=== PATIENT | female | born 1955 | race African-American/Black ===

== ENCOUNTER 2025-03-20 11:39 | Inpatient (IN) | payer OTHER, MEDICAID ==
[~2025-03-20] VITALS: Ht 165.1 cm; Wt 49.0 kg
[2025-03-20 11:45] VITALS: O2SAT 100
[2025-03-20 12:38] LABS: BASOPHILS % 0.7 % (0.0-2.0); EOSINOPHILS % 1.9 % (0.0-5.0); HEMATOCRIT. 27.3 % (36.0-48.0); HEMOGLOBIN. 9.3 g/dL (12.0-16.0); LYMPHOCYTES % 28.7 % (20.0-50.0); MEAN PLATELET VOLUME 8.2 fl (7.4-10.4); MONOCYTES % 14.4 % (2.0-8.0); NEUTROPHILS % 54.3 % (40.0-76.0); PLATELET 125 x1000/uL (130-400); RED BLOOD CELL COUNT 2.95 mill/uL (4.2-5.4); RED CELL DISTRIBUTION WIDTH 17.7 % (11.6-14.6)
[2025-03-20 12:49] LABS: CREATININE 0.6 mg/dL (0.6-1.0); UREA NITROGEN BLOOD 9 mg/dL (9-23)
[2025-03-20 12:51] LABS: ASPARTATE AMINOTRANSFERASE 73 IU/L (<34); BILIRUBIN DIRECT 0.6 mg/dL (<=3.0); BILIRUBIN TOTAL 1.1 mg/dL (0.1-1.0); PROTEIN TOTAL 6.2 g/dL (6.0-8.3)
[2025-03-20 12:55] LABS: TROPONIN I HIGH SENSITIVITY < 4 ng/L (3.0-34)
[2025-03-20] MEDS: LACTULOSE 20G/30ML UDC PO ONE (14:01)
[2025-03-20 16:30] VITALS: BP_SYST 102; BP_DIAS 58; BP_DIAS 78; PULSE 88; RESP 18; TEMP 36.6; O2SAT 94
[2025-03-20] MEDS ORDERED: ONDANSETRON HCL 4MG/2ML INJ IV PRN (16:45)
[2025-03-20 18:42] VITALS: BP 102/58; PULSE 82; RESP 18; TEMP 36.5848
[2025-03-20 20:00] VITALS: BP 144/100; PULSE 81; RESP 18; TEMP 36.4; O2SAT 98
[2025-03-20] MEDS ORDERED: LACTULOSE 20G/30ML UDC PO SCH (22:00)
[2025-03-20] MEDS: LACTULOSE 20G/30ML UDC PO SCH (23:25)
[2025-03-21] VITALS: BP 135/71; PULSE 84; RESP 18; TEMP 36.4; O2SAT 97
[2025-03-21] MEDS: CEFTRIAXONE 1GM/50ML 50 ML IV SCH (03:07)
[2025-03-21 04:00] VITALS: BP 130/73; PULSE 88; RESP 18; TEMP 36.3; O2SAT 97
[2025-03-21 07:09] LABS: UREA NITROGEN BLOOD 6 mg/dL (9-23)
[2025-03-21 07:59] LABS: CREATININE 0.4 mg/dL (0.6-1.0)
[2025-03-21 08:00] VITALS: BP 132/84; PULSE 89; RESP 17; TEMP 36.5; O2SAT 100
[2025-03-21] MEDS: PANTOPRAZOLE SODIUM 40 MG/VIAL IV SCH (08:22)
[2025-03-21 08:52] LABS: HEMATOCRIT. 29.3 % (36.0-48.0); HEMOGLOBIN. 9.8 g/dL (12.0-16.0); MEAN PLATELET VOLUME 8.7 fl (7.4-10.4); PLATELET 130 x1000/uL (130-400); RED BLOOD CELL COUNT 3.13 mill/uL (4.2-5.4); RED CELL DISTRIBUTION WIDTH 18.2 % (11.6-14.6)
[2025-03-21] MEDS ORDERED: PANTOPRAZOLE SODIUM 40 MG/VIAL IV SCH (09:00)
[2025-03-21 12:00] VITALS: BP 105/58; PULSE 71; RESP 16; TEMP 36.4; O2SAT 100
[2025-03-21 16:00] VITALS: BP 125/80; PULSE 81; RESP 17; TEMP 36.5; O2SAT 100
[2025-03-21] MEDS: HYDROCODONE/ACETAMINOPHEN 10/325MG TABLET PO PRN (16:12)
[2025-03-21] MEDS ORDERED: NALOXONE HCL 0.4MG/ML VIAL IV PRN (16:15)
[2025-03-21] MEDS: NA PHOS,M-B/NA PHOS,DI-BA ENEMA 118ML PR NR (17:43)
[2025-03-21 18:37] LABS: *AMPHETAMINES SCREEN URINE NEGATIVE (NEGATIVE); *BENZODIAZEPINES SCREEN URINE NEGATIVE (NEGATIVE)
[2025-03-21 18:38] LABS: *BARBITURATES SCREEN URINE NEGATIVE (NEGATIVE); *COCAINE SCREEN URINE NEGATIVE (NEGATIVE); CANNABINOID URINE SCREEN PRESUMPTIVE POSITIVE (NEGATIVE); ECSTASY MDMA SCREEN URINE NEGATIVE (NEGATIVE); METHADONE URINE SCREEN NEGATIVE (NEGATIVE); OPIATES URINE SCREEN PRESUMPTIVE POSITIVE (NEGATIVE); PHENCYCLIDINE URINE SCREEN NEGATIVE (NEGATIVE)
[2025-03-21 19:15] LABS: CLARITY URINE CLEAR (CLEAR); GLUCOSE URINE NEGATIVE (NEGATIVE); KETONES URINE TRACE (NEGATIVE); LEUKOCYTE ESTERASE URINE TRACE (NEGATIVE); NITRITE URINE NEGATIVE (NEGATIVE); OCCULT BLOOD URINE 1+ (NEGATIVE); PH URINE >=9.0 (4.5-8.0); PROTEIN URINE TRACE (NEGATIVE); SPECIFIC GRAVITY URINE 1.017 (1.005-1.030); UROBILINOGEN URINE 1.0 E.U./dL (0.2-1.0)
[2025-03-21 19:42] LABS: COLOR URINE YELLOW (YELLOW)
[2025-03-21 19:44] LABS: BACTERIA URINE NONE SEEN; RBC URINE NONE SEEN /hpf (0-2); SQUAMOUS EPITHELIAL CELL URINE RARE /lpf (RARE/1+); WBC URINE 0-2 /hpf (0-2)
[2025-03-21 20:00] VITALS: BP 148/67; PULSE 68; RESP 18; TEMP 36.4; O2SAT 98
[2025-03-21] MEDS: ONDANSETRON HCL 4MG/2ML INJ IV PRN (22:49)
[2025-03-21 23:49] LABS: LYMPHOCYTES % MANUAL 19.0 % (20.0-60.0); MONOCYTES % MANUAL 14.0 % (2.0-8.0); NEUTROPHILS % MANUAL 67.0 % (45.0-75.0); PLATELET ESTIMATE NORMAL
[2025-03-22] VITALS (7 sets, daily range): BP systolic 100–140; BP diastolic 48–74; PULSE 60–73; RESP 16–18; TEMP 36.1–36.7; O2SAT 97–100
[2025-03-23] VITALS: BP 134/68; PULSE 68; RESP 19; TEMP 36.9; O2SAT 100
[2025-03-23 04:00] VITALS: BP 146/83; PULSE 71; RESP 18; TEMP 36.9; O2SAT 100
[2025-03-23 08:00] VITALS: BP 154/70; PULSE 65; RESP 16; TEMP 36.4; O2SAT 97
[2025-03-23] MEDS: NA PHOS,M-B/NA PHOS,DI-BA ENEMA 118ML PR SCH (10:35)
[2025-03-23 12:00] VITALS: BP 122/59; PULSE 65; PULSE 68; RESP 15; RESP 18; TEMP 36.3; O2SAT 96
[2025-03-23] MEDS: LACTULOSE 20G/30ML UDC PO SCH (14:49)
[2025-03-23 16:00] VITALS: BP 141/70; PULSE 65; RESP 16; TEMP 36.3; O2SAT 97
[2025-03-23 20:00] VITALS: BP 138/68; PULSE 67; RESP 19; TEMP 36.5; O2SAT 99
[2025-03-23] MEDS: LACTULOSE 20G/30ML UDC PO NR (23:21)
[2025-03-24 07:49] LABS: VITAMIN B12 SERUM 1489 pg/mL (211-911)
[2025-03-24 08:14] VITALS: BP 138/68; PULSE 82; RESP 18; TEMP 36.6; O2SAT 98
[2025-03-24] MEDS ORDERED: LACT-390 MT (11:13)
[2025-03-24 12:34] VITALS: BP 144/72; PULSE 78; RESP 18; TEMP 36.7; O2SAT 99
[2025-03-24 13:01] VITALS: BP 144/72; PULSE 78; RESP 18; TEMP 98.1
== END 2025-03-24 13:25 | disposition home or self-care (01) | DRG 71 ==
LOC: ER 11:39 → 6WST 15:33 → EDBEDREQTM 15:34 → EDBEDREQ 15:34 → ENRESERV 15:55
PROVIDERS: ADMIT Internal Medicine; ATTEND Internal Medicine
DX: G93.49 Other encephalopathy (principal); Z68.1 Body mass index [BMI] 19.9 or less, adult; R62.7 Adult failure to thrive; K74.60 Unspecified cirrhosis of liver; D64.9 Anemia, unspecified; I10 Essential (primary) hypertension; K80.20 Calculus of gallbladder without cholecystitis without obstruction; Z78.1 Physical restraint status; Z82.49 Family history of ischemic heart disease and other diseases of the circulatory system
CPT/HCPCS: 36415; 71045; 76700; 80048; 80076; 80305; 80320; 81003; 82140; 82550; 82607; 84443; 84484; 85025; 93005; 99285; A4606; J0696; J2405; J2470; G0480